=== PATIENT | male | born 1935 | race Caucasian/White ===

== ENCOUNTER 2020-07-24 12:41 | Emergency (ER) | payer MEDICARE, OTHER ==
--- NOTE | 2020-07-24 13:00 | ED Physician Documentation ---
PD HPI MALE - Stated complaint Stated Complaint: UNABLE TO URINATE - Chief complaint Chief Complaint: Abd Pain - History obtained from History obtained from: Patient - History of Present Illness Timing - onset: How many weeks ago (few) Timing - duration: Weeks (few) Timing - details: Gradual onset, Still present (has had dribbling output for few weeks despite Flomax. The past few days has had marked cramping pain with trying to urinate and only minimal output. He called his Urologist, who suggested he come to ER to get muniz placed.) Associated symptoms: Unable to urinate Similar symptoms before: Diagnosis (has had weak stream and dribbles, but not down to this degree of retention.) Recently seen: Clinic Review of Systems Constitutional: denies: Fever, Chills, Myalgias Nose: denies: Rhinorrhea / runny nose, Congestion Throat: denies: Sore throat Respiratory: denies: Cough GI: denies: Nausea, Vomiting, Constipation, Diarrhea : reports: Unable to Void Musculoskeletal: denies: Back pain Neurologic: denies: Focal weakness, Numbness PD PAST MEDICAL HISTORY - Past Medical History Cardiovascular: Hypertension, [place] GI: GERD - Past Surgical History Past Surgical History: Yes /[employer]: Other (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) Cardiovascular: CABG - Present Medications Home Medications: Ambulatory Orders Medication Instructions Recorded Confirmed Aspirin 81 mg PO DAILY 10/22/13 04/29/16 Atorvastatin Calcium 80 mg PO DAILY 10/22/13 04/29/16 Omeprazole [PriLOSEC] 20 mg PO DAILY 10/22/13 04/29/16 - Allergies Allergies/Adverse Reactions: Allergies Allergy/AdvReac Type Severity Reaction Status Date / Time No Known Drug Allergies Allergy Verified 04/18/16 19:46 - Social History Does the pt smoke?: No Smoking Status: Never smoker Does the pt drink ETOH?: Yes Does the pt have substance abuse?: No PD ED PE NORMAL - Vitals Vital signs reviewed: Yes - General General: Alert and oriented X 3, Well developed/nourished - Cardiac Cardiac: RRR, No murmur - Respiratory Respiratory: Clear bilaterally - Abdomen Abdomen: Soft, Non distended, No organomegaly, Other (bladder fullness and tender. External genitalia normal. ) - Back Back: No CVA TTP - Derm Derm: Normal color, Warm and dry Results - Vitals Vitals: Vital Signs - 24 hr 07/24/20 07/24/20 12:46 14:15 Temperature 36.5 C 36.5 C Heart Rate 77 74 Respiratory 16 18 Rate Blood Pressure 141/60 H 154/72 H O2 Saturation 97 98 Oxygen O2 Source Room air - Labs Labs: Laboratory Tests 07/24/20 13:30 Urine Color YELLOW Urine Clarity CLEAR Urine pH 6.0 Ur Specific [place] 1.025 Urine Protein NEGATIVE Urine Glucose (UA) NEGATIVE Urine Ketones NEGATIVE Urine Occult Blood TRACE-INTA Urine Nitrite NEGATIVE Urine Bilirubin NEGATIVE Urine Urobilinogen 0.2 (NORMAL) Ur Leukocyte Esterase TRACE H Urine RBC 0-5 Urine WBC 0-3 Ur Squamous Epith Cells NONE SEEN Urine Bacteria None Seen Ur Microscopic Review INDICATED Urine Culture Comments INDICATED PD MEDICAL DECISION MAKING - ED course Complexity details: re-evaluated patient (feeling better with muniz in and bladder decompresed. Urine appears okay. ), considered differential (sounds like urinary retention acute on chronic and can place a muniz until he sees his urologist next week. ), d/w patient Departure - Departure Disposition: Home, Self Care Clinical Impression: Lower abdominal pain, Acute urinary retention Condition: Stable Record reviewed to determine appropriate education?: Yes Instructions: ED Catheter Care Muniz Follow-Up: Yash Villela MD [Primary Care Provider] - Comments: Continue your current medications. Stay well-hydrated. Keep the Muniz catheter in until Monday when you see your urologist. Return if problems. Discharge Date/Time: 07/24/20 14:20
[2020-07-24] MEDS ORDERED: LIDOCAINE 2% URO-JET 5 ML SYRINGE UR STA (13:09)
[2020-07-24 13:45] LABS: BILIRUBIN,URINE NEGATIVE (NEGATIVE); GLUCOSE, URINE (UA) NEGATIVE (NEGATIVE); KETONES,URINE (UA) NEGATIVE (NEGATIVE); LEUKOCYTE ESTERASE, URINE TRACE (NEGATIVE); NITRITE,URINE NEGATIVE (NEGATIVE); OCCULT BLOOD,URINE TRACE-INTA (NEGATIVE); PROTEIN,URINE NEGATIVE (NEGATIVE); UROBILINOGEN,URINE 0.2 (NORMAL) E.U./dL (NORMAL)
[2020-07-24 13:48] LABS: CLARITY,URINE CLEAR (CLEAR)
[2020-07-24 13:56] LABS: BACTERIA,URINE None Seen /HPF (None Seen); RBC,URINE 0-5 /HPF (0-5); SQUAMOUS EPITHELIAL CELL,UR NONE SEEN (<= Few)
[2020-07-24 14:16] VITALS: BP 154/72
== END 2020-07-24 14:20 | disposition home or self-care (01) ==
LOC: ED 12:41
DX: R10.30 Lower abdominal pain, unspecified (principal); R33.9 Retention of urine, unspecified; I10 Essential (primary) hypertension
CPT/HCPCS: 51702; 51798; 81001; 81003; 87086; 99282; 99283